=== PATIENT | female | born 1950 | race Caucasian/White ===

== ENCOUNTER 2019-05-13 10:49 | Inpatient (IN) | payer MEDICARE, MEDICAID ==
[~2019-05-13] VITALS: Ht 152.4 cm; Wt 93.0 kg
[2019-05-13 10:58] VITALS: BP 126/71
[2019-05-13] MEDS ORDERED: ABILIFY 5 MG TAB5 MG PO (11:17)
[2019-05-13] MEDS ORDERED: LASIX 40 MG TAB40 MG PO ×2 (11:17→11:19)
[2019-05-13] MEDS ORDERED: AMBIEN 10 MG TA10 MG PO (11:18)
[2019-05-13] MEDS ORDERED: COZAAR 25 MG TA25 M1 PO (11:18)
[2019-05-13] MEDS ORDERED: OLANZAPINE10 M1 PO (11:18)
[2019-05-13] MEDS ORDERED: ATIVAN1 M1 PO (11:18)
[2019-05-13] MEDS ORDERED: VITAMIN D400 UNIT PO (11:19)
[2019-05-13] MEDS ORDERED: BRINTELLIX20 MG PO (11:19)
[2019-05-13] MEDS ORDERED: LEVO-T100 MCG PO (11:20)
[2019-05-13] MEDS ORDERED: MELATONIN5 MG SUBLING (11:21)
[2019-05-13 11:48] LABS: ABSOLUTE BASOPHILS 0.1 thou/uL (0.0-0.2); ABSOLUTE EOSINOPHILS 0.3 thou/uL (0.0-0.7); ABSOLUTE LYMPHOCYTES 0.8 thou/uL (0.8-5.3); ABSOLUTE MONOCYTES 0.4 thou/uL (0.0-1.2); BASOPHILS 0.6 %; EOSINOPHILS 2.9 %; HEMATOCRIT 36.7 % (37.0-47.0); HEMOGLOBIN 12.5 gm/dL (12.0-15.0); LYMPHOCYTES 9.9 %; MCHC 34.2 g/dL (28.0-37.0); MCV 96.6 fL (80.0-100.0); MONOCYTES 4.5 %; MPV 7.9 fl. (7.2-11.1); NUCLEATED RBCS 0 /100WBC; PLATELET COUNT* 465 thou/uL (150-400); POLYS 82.1 %; RBC 3.79 mil/uL (4.20-5.00); RDW-CV 14.6 % (10.5-14.5); WBC 8.5 thou/uL (4.0-11.0)
[2019-05-13 11:57] LABS: CALCIUM 8.5 mg/dL (8.5-10.1)
[2019-05-13 12:08] LABS: ALBUMIN 2.8 g/dL (3.4-5.0); TOTAL BILIRUBIN 0.3 mg/dL (<0.1-1.0); TOTAL PROTEIN 7.4 g/dL (6.4-8.2)
[2019-05-13 12:16] LABS: URINE BILIRUBIN NEGATIVE (Negative); URINE BLOOD NEGATIVE (Negative); URINE CLARITY CLEAR; URINE COLOR STRAW; URINE GLUCOSE-RANDOM NEGATIVE (Negative); URINE KETONES NEGATIVE (Negative); URINE LEUKOCYTES-REFLEX TRACE (Negative); URINE NITRITE-REFLEX NEGATIVE (Negative); URINE PROTEIN NEGATIVE (Negative); URINE SPECIFIC GRAVITY <= 1.005 (1.005-1.030); URINE UROBILINOGEN 0.2 E.U./dl (0.2-1.0)
[2019-05-13 12:31] LABS: BACTERIA-REFLEX 1-9 Few /HPF (None Seen); CASTS None Seen /LPF (None Seen); CRYSTALS None Seen /LPF (None Seen); MUCUS None Seen strn/LPF (None Seen); SQUAMOUS 0-3 Few /LPF (0-3); URINE RBC 0-2 Rare /HPF (0-2); URINE WBC-REFLEX 0-5 Rare /HPF (0-5)
[2019-05-13 13:55] VITALS: BP 134/76
--- NOTE | 2019-05-13 14:32 | EKG ---
[place] [address] ELECTROCARDIOGRAM REPORT Name: FERNANDO GAMBLE Room: [address] ADM IN .R.#: [id number] Admission: 05/13/19 Attend Phys: Srinivas Butt MD Discharge: Date of : 50 Report #: [id number] THIS REPORT FOR: //name// [facility] ED Test Date: 2019-05-13 Test Time: 11:06:20 Pat Name: FERNANDO GAMBLE Department: Room: [facility] Gender: F Surgical Assistant Certified: : 1950 Requested By: Silvio Gardner Order Number: [id number] MD: Panchito Temple Measurements Intervals [place] Rate: 109 P: 48 [place]: 187 QRS: 27 QRSD: 88 T: 63 QT: 333 QTc: 449 Interpretive Statements Sinus tachycardia Abnormal R-wave progression, early transition No previous ECG available for comparison Electronically Signed On 05-13-2019 14:32:07 DIE SINKING MACHINE OPERATOR by Panchito Temple [email or web address] <ELECTRONICALLY SIGNED> By: Panchito Temple MD, [facility] 05/13/19 1432 D: 01/1105 05 Panchito Temple MD, FACC /EPI
[2019-05-13 14:45] VITALS: BP 125/66
[2019-05-13 16:00] VITALS: BP 83/41
--- NOTE | 2019-05-13 16:49 | NUR ---
PT ARRIVED FROM ER ABOUT 1400. VITALS STABLE, CHARTED. ADMISSION COMPLETE. BLITAERAL EDEMA ON LOWER EXTREMITIES. UP WITH STAND BY TO CAMMODE USING WALKER. TOLERATING DIET. FALL PRECAUTIONS IN PLACE. CALL LIGHT WITHIN REACH. WILL CONTINUE TO MONITOR.
[2019-05-13 21:30] VITALS: BP 88/47
[2019-05-14 01:30] VITALS: BP 126/63
[2019-05-14 04:12] LABS: ABSOLUTE BASOPHILS 0.1 thou/uL (0.0-0.2); ABSOLUTE EOSINOPHILS 0.6 thou/uL (0.0-0.7); ABSOLUTE LYMPHOCYTES 1.7 thou/uL (0.8-5.3); ABSOLUTE MONOCYTES 0.6 thou/uL (0.0-1.2); BASOPHILS 1.2 %; EOSINOPHILS 7.3 %; HEMATOCRIT 31.6 % (37.0-47.0); HEMOGLOBIN 10.7 gm/dL (12.0-15.0); LYMPHOCYTES 21.3 %; MCH 32.9 pg (26.0-34.0); MCHC 33.8 g/dL (28.0-37.0); MCV 97.4 fL (80.0-100.0); MONOCYTES 7.6 %; MPV 7.6 fl. (7.2-11.1); NUCLEATED RBCS 0 /100WBC; PLATELET COUNT* 426 thou/uL (150-400); POLYS 62.6 %; RBC 3.25 mil/uL (4.20-5.00); RDW-CV 14.7 % (10.5-14.5); WBC 8.1 thou/uL (4.0-11.0)
[2019-05-14 04:23] LABS: CALCIUM 7.4 mg/dL (8.5-10.1); CREATININE 0.9 mg/dL (0.6-1.3); POTASSIUM 3.6 mmol/L (3.5-5.1)
--- NOTE | 2019-05-14 05:49 | NUR ---
MEDS GIVEN ORDERED. PAIN MANAGED WITH TYLENOL. LEGS RED AND SWOLLEN, ELEVATED ON PILLOW. PT UP TO BSC WITH DARRIUS ASSIST. IVF RUNNING ORDERED. HOURLY ROUNDS COMPLETED. WILL CONTINUE TO MONITOR.
[2019-05-14 07:48] VITALS: BP 117/65
--- NOTE | 2019-05-14 11:04 | NUR ---
SW met with pt to complete initial assessment, introduce self, and SW role. Pt alert, oriented, pleasant. Pt live at home with a friend. Pt has RW, wc, shower bench. Pt interested in HH services at dc in needed. SW to continue to follow to assist with safe dc planning.
[2019-05-14 16:00] VITALS: BP 114/69
--- NOTE | 2019-05-14 18:44 | NUR ---
PT A&Ox4. VITALS STABLE. IV PATENT. UP TO THE CAMMODE AD MARK. PAIN IN LEGS, CONTROLLED WITH TYLENOL. DENIED NAUSEA. TOLERATING MEAL. CALL LIGHT WITHIN REACH. WILL CONTINUE TO MONITOR.
[2019-05-14 20:00] VITALS: BP 117/60
[2019-05-15 04:30] VITALS: BP 130/72
--- NOTE | 2019-05-15 05:39 | NUR ---
Alert and oriented x 4. She is up independently to the bedside commode,voiding well. She has been having a great oral fluid intake, so IVF's have been stopped. Bilat LE's are edemedous,red and have warmth. She has had pain meds x 2 this shift. She has slept well.
[2019-05-15 07:50] VITALS: BP 131/74
[2019-05-15] MEDS ORDERED: MINOCYCLINE HC100 M2 PO (08:29)
[2019-05-15 10:03] VITALS: BP 131/74
[2019-05-15 10:21] VITALS: BP 131/74
--- NOTE | 2019-05-15 10:24 | NUR ---
Pt to dc home with friend today. SW arranged pt preference and in network with pt insurance of [facility]. ph [phone]
--- NOTE | 2019-05-15 14:27 | NUR ---
PT DISCHARGED TO HOME WITH HOME HEALTH BY WHEELCHAIR WITH NURSING STAFF AND FRIEND AT ABOUT 1405. PERSONAL ITEMS SENT WITH PT. IV OUT. PT STABLE. PAPER SCRIPTS GIVEN WITH CARE NOTES.
== END 2019-05-15 14:32 | disposition home health service (06) | DRG 603 ==
LOC: M.ERS 10:49 → M.TBA-ER 12:25 → M.ORTHSURG 12:25
PROVIDERS: Physician Assistant; ADMIT Internal Medicine
DX: L03.116 Cellulitis of left lower limb (principal); E87.2 Acidosis; L03.115 Cellulitis of right lower limb; F41.9 Anxiety disorder, unspecified; F32.9 Major depressive disorder, single episode, unspecified; I10 Essential (primary) hypertension; Z79.899 Other long term (current) drug therapy